=== PATIENT | male | born 1960 | race Caucasian/White ===

== ENCOUNTER 2019-02-25 14:21 | Emergency (ER) | payer BC ==
[~2019-02-25 14:21] MED LIST: AMLO10 PO; ATEN50 PO; CEPH500 PO; CHOL10002 PO; CITA20 PO; CLIN150 PO; DIVA250EC PO; GABA600 PO; HYDSUL200 PO; Hair, Skin & N1 EACH PO; IBUP800 PO; LAMO100 PO; LOSA25 PO; METTREX2.5 PO; MUPI2TO TOP; OLAN10 PO; PRED10 PO; VARE1 PO; VICODIN ES 7.51 EACH PO; Zyprexa10 MG PO; [UNRECOGNIZED DRUG - OTHER]
[2019-03-03] MEDS ORDERED: FOLI1 PO (09:09)
[2019-03-03] MEDS ORDERED: LOSA50 PO (09:10)
[2019-03-03] MEDS ORDERED: TOPI25 PO (09:10)
[2019-03-03] MEDS ORDERED: VENL150ER PO (09:11)
[2019-03-03] MEDS ORDERED: Norco 5-325 Ta1 EACH PO (09:11)
[2019-03-03] MEDS ORDERED: BENLYSTA (09:12)
== END 2019-02-25 15:15 | disposition left against medical advice (07) ==
LOC: ER 14:21
DX: Z53.21 Procedure and treatment not carried out due to patient leaving prior to being seen by health care provider (principal)

== ENCOUNTER 2019-03-12 06:52 | Day surgery (SDC) | payer BC ==
[~2019-03-12] VITALS: Ht 177.8 cm; Wt 124.0 kg
[~2019-03-12 06:52] MED LIST changes: +BENLYSTA; +FOLI1 PO; +LOSA50 PO; +Norco 5-325 Ta1 EACH PO; +TOPI25 PO; +VENL150ER PO
--- NOTE | 2019-03-12 07:26 | NUR ---
History, Chart, Medications and Allergies reviewed before start of procedure. Patient confirms NPO status and agrees with scheduled surgery. C/O 5/10 PAIN TO LEFT GROIN. Patient States Post-Procedure ride home has been arranged with his . Patient reports completing Chlorhexadine shower X2 prior to admission to hospital.
--- NOTE | 2019-03-12 07:30 | NUR ---
PATIENT DENIES ANY KNOWN ALLERGIES AND ASKED THAT ACYCLOVIR, LAMOTRIGINE, AND ZIPRASIDONE BE REMOVED FROM HIS ALLERGY LIST.
[2019-03-12] MEDS ORDERED: ALBU90OI61 INH (07:31)
== END 2019-03-12 23:23 | disposition home or self-care (01) ==
LOC: ORSCMMR 06:52 → ORD 08:30 → ORSCMMR 08:30
PROVIDERS: Surgery
PROC: 0YU64JZ Supplement Left Inguinal Region with Synthetic Substitute, Percutaneous Endoscopic Approach (ICD-10-PCS; principal; 2019-03-12 08:30)
PROC: 8E0W4CZ Robotic Assisted Procedure of Trunk Region, Percutaneous Endoscopic Approach (ICD-10-PCS; principal; 2019-03-12 08:30)
DX: K40.90 Unilateral inguinal hernia, without obstruction or gangrene, not specified as recurrent (principal); I10 Essential (primary) hypertension; J44.9 Chronic obstructive pulmonary disease, unspecified; G47.33 Obstructive sleep apnea (adult) (pediatric); F17.210 Nicotine dependence, cigarettes, uncomplicated; M32.9 Systemic lupus erythematosus, unspecified; E66.01 Morbid (severe) obesity due to excess calories; Z68.39 Body mass index [BMI] 39.0-39.9, adult; Z79.899 Other long term (current) drug therapy
CPT/HCPCS: 49650; S2900; A9270-GY; C1781; J0690; J1100; J1885; J2250; J2405; J2704; J2710; J3010; J7120

== ENCOUNTER 2019-03-26 21:09 | Emergency (ER) | payer BC ==
[~2019-03-26] VITALS: Ht 177.8 cm; Wt 126.1 kg
[~2019-03-26 21:09] MED LIST changes: +ALBU90OI61 INH
[2019-03-26] MEDS ORDERED: CEPH500 PO (22:23)
[2019-03-26] MEDS ORDERED: Percocet 5-3251 EACH PO (22:23)
[2019-03-26] MEDS ORDERED: Bactrim Ds Tab1 EACH PO (22:23)
== END 2019-03-26 22:37 | disposition home or self-care (01) ==
LOC: ER 21:09
DX: L03.114 Cellulitis of left upper limb (principal); I10 Essential (primary) hypertension; F31.9 Bipolar disorder, unspecified; F17.210 Nicotine dependence, cigarettes, uncomplicated; Z79.899 Other long term (current) drug therapy
CPT/HCPCS: 99282; A9270

== ENCOUNTER → 2019-08-01 | Outpatient (CLI) | payer BC ==
[~2019-08-01] MED LIST changes: +Bactrim Ds Tab1 EACH PO; +Percocet 5-3251 EACH PO
== END | disposition home or self-care (01) ==
LOC: LAB SHORT 11:02 → LAB EV 11:02
DX: S56.911A Strain of unspecified muscles, fascia and tendons at forearm level, right arm, initial encounter (principal)
CPT/HCPCS: 84550

== ENCOUNTER 2019-08-16 13:25 | Day surgery (SDC) | payer BC ==
[~2019-08-16] VITALS: Ht 177.8 cm; Wt 114.3 kg
[2019-08-16] MEDS ORDERED: OLAN10 PO (14:19)
[2019-08-16] MEDS ORDERED: NEBI5 PO (14:19)
[2019-08-16] MEDS ORDERED: CYCL10 PO (14:19)
--- NOTE | 2019-08-16 17:16 | NUR ---
08/16/191715 Ishaan Staples LATE ENTRY-[id number] WATT ABOUT PATIENT BP AND HE STATED PATIENT CAME IN WITH ELEVATED BP AND IT IS OKAY TO DISCHARGE WITH A BP OF 185/108
== END 2019-08-16 17:10 | disposition home or self-care (01) ==
LOC: ORSCSDS 13:25
PROVIDERS: Internal Medicine Gastroenterology
PROC: 0DB68ZX Excision of Stomach, Via Natural or Artificial Opening Endoscopic, Diagnostic (ICD-10-PCS; principal; 2019-08-16 14:30)
PROC: 0DBM8ZX Excision of Descending Colon, Via Natural or Artificial Opening Endoscopic, Diagnostic (ICD-10-PCS; principal; 2019-08-16 14:30)
PROC: 0DB98ZX Excision of Duodenum, Via Natural or Artificial Opening Endoscopic, Diagnostic (ICD-10-PCS; principal; 2019-08-16 14:30)
PROC: 0DBH8ZX Excision of Cecum, Via Natural or Artificial Opening Endoscopic, Diagnostic (ICD-10-PCS; principal; 2019-08-16 14:30)
PROC: 0DBN8ZX Excision of Sigmoid Colon, Via Natural or Artificial Opening Endoscopic, Diagnostic (ICD-10-PCS; principal; 2019-08-16 14:30)
DX: D50.9 Iron deficiency anemia, unspecified (principal); Z86.010 Personal history of colon polyps; R19.5 Other fecal abnormalities; K57.30 Diverticulosis of large intestine without perforation or abscess without bleeding; G47.33 Obstructive sleep apnea (adult) (pediatric); D12.0 Benign neoplasm of cecum; D12.4 Benign neoplasm of descending colon; K63.5 Polyp of colon; K29.70 Gastritis, unspecified, without bleeding; B37.81 Candidal esophagitis; E66.01 Morbid (severe) obesity due to excess calories; Z68.37 Body mass index [BMI] 37.0-37.9, adult; F17.210 Nicotine dependence, cigarettes, uncomplicated; J44.9 Chronic obstructive pulmonary disease, unspecified; E11.9 Type 2 diabetes mellitus without complications; Z79.899 Other long term (current) drug therapy
CPT/HCPCS: 82947; 88305; 88342; J2704; J7120

== ENCOUNTER → 2020-03-28 | Outpatient (CLI) | payer OTHER ==
[~2020-03-28] MED LIST changes: +CYCL10 PO; +NEBI5 PO
[2020-03-28 14:52] LABS: Appearance, Urine Clear (Clear); Bilirubin, Urine Neg (Neg); Blood, Urine Neg (Neg); Color, Urine Yellow (P-Yellow); Glucose Qualitative, Urine Neg (Neg); Ketones, Urine Neg (Neg); Leukocyte Esterase, Urine Neg (Neg); Nitrite, Urine Neg (Neg); Protein, Urine Neg (Neg); Urobilinogen, Urine NORM (Normal); pH, Urine 6.5 (5.0-8.0)
[2020-03-28 15:10] LABS: Osmolality, Urine 202 mos/kg (15-1400)
[2020-03-28 15:11] LABS: Sodium, Urine, Random 40 mmol/L (20-110)
== END | disposition home or self-care (01) ==
LOC: LAB SHORT 14:01 → LAB 14:01
PROVIDERS: Internal Medicine
DX: E87.1 Hypo-osmolality and hyponatremia (principal)
CPT/HCPCS: 81003; 83935; 84300

== ENCOUNTER → 2020-06-05 | Outpatient (CLI) | payer OTHER | LOC: LAB SHORT 17:25 → LAB 17:25 | DX: M71.372 Other bursal cyst, left ankle and foot (principal); M79.672 Pain in left foot; R22.42 Localized swelling, mass and lump, left lower limb | CPT/HCPCS: 87070; 87205; 88304 ==